=== PATIENT | male | born 1940 | race Caucasian/White ===

== ENCOUNTER 2017-01-29 10:25 | Day surgery (SDC) | payer OTHER ==
[2017-01-28 11:13] LABS: HEMATOCRIT 37.3 % (40.0-51.0); HEMOGLOBIN 13.2 g/dL (13.6-17.8)
[2017-01-28 11:33] LABS: BUN (BLOOD UREA NITROGEN) 7 MG/DL (6-23); CHLORIDE, SERUM 100 MMOL/L (96-112); CO2 (CARBON DIOXIDE) 26 MMOL/L (24-34); CREATININE 0.89 MG/DL (0.70-1.30); GFR AFRICAN AMERICAN 96 ML/MIN (>=60); GFR NON AFRICAN AMERICAN 83 ML/MIN (>=60); GLUCOSE, SERUM 148 MG/DL (60-99); POTASSIUM, SERUM 4.3 MMOL/L (3.5-5.3); SODIUM, SERUM 136 MMOL/L (135-148)
--- NOTE | ~2017-01-29 | OP ---
Record Of Operation [facility] [address] [place]. [address] NAME: DURGA PRADO : 40 STATUS : [facility]#: [id number] AGE: 76 ADM/REG DATE : 01/29/17 MR#: [id number] REPORT SERV DATE: 02/01/17 DICTATED BY: SHERRI CARTAGENA DATE: 02/01/17 REPORT STATUS : Draft TRANSCRIBED BY: MODL DATE: 02/01/17 DATE OF PROCEDURE: 01/29/2017 SERVICE: Otolaryngology. 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 ANESTHESIA: General endotracheal anesthesia. ESTIMATED BLOOD LOSS: 5 mL. COMPLICATIONS: None. SPECIMEN: 1. Initial wedge excision of lower lip. 2. Re-excision of medial margin. STATEMENT OF MEDICAL NECESSITY: This 76-year-old male who had in-office biopsy of a nonhealing lower lip lesion that demonstrated squamous cell carcinoma. The above surgery was recommended for appropriate margin control and reconstruction. STATEMENT OF OPERATION: The patient was brought to the operating room in supine position and transferred to the operating room table. After all pressure points were padded and general endotracheal anesthesia was established, the area and lip was infiltrated with 1% lidocaine with epinephrine. A cranial nerve V:III block was also performed intraorally in the gingivobuccal mucosa. The patient was then prepped and draped in the usual fashion. Using a surgical marking pen, a wedge incision with approximately 5 mm visual margins was performed with a full-thickness wedge removed. This was marked with a stitch on the medial edge of the excision and was sent for frozen analysis. There was a small microscopic focus of disease still present in the medial margin, another 5 mm was taken and sent for frozen. The wound was then closed in a complex fashion in three layers closing the muscular portion first followed by the mucosal margin. The mary border and wet line were both lined up carefully and the skin was closed with 5-0 fast absorbing gut sutures. This concluded the case. The patient was turned back over to Anesthesia where he awoke, was transferred to the PACU in stable condition. PS/MODL Sherri Record Of Operation [facility] [address] [place] [address] NAME: DURGA PRADO : 40 STATUS : [facility] PAT#: [id number] AGE: 76 ADM/REG DATE : 01/29/17 MR#: [id number] REPORT SERV DATE: 02/01/17 DICTATED BY: SHERRI CARTAGENA DATE: 02/01/17 REPORT STATUS : Draft TRANSCRIBED BY: MODL DATE: 02/01/17 MD Alpesh / [id number] CC: MD JOSE Wang J. MACK
[~2017-01-29 10:25] MED LIST: ASAB PO; GLUCOPHXR7 PO; LANTUS SC; LEVOTHYROXIN50 MCG PO; NORV10 PO; ZESTRIL40 MG PO
== END 2017-01-29 17:07 | disposition home or self-care (01) ==
LOC: SDC 10:25
PROVIDERS: Otolaryngology
PROC: 0CB1XZZ Excision of Lower Lip, External Approach (ICD-10-PCS; 2017-01-29)
PROC: 0CQ1XZZ Repair Lower Lip, External Approach (ICD-10-PCS; principal; 2017-01-29 11:45)
DX: C00.1 Malignant neoplasm of external lower lip (principal); I10 Essential (primary) hypertension; E11.9 Type 2 diabetes mellitus without complications; E03.9 Hypothyroidism, unspecified; M21.371 Foot drop, right foot; I49.9 Cardiac arrhythmia, unspecified; Z91.030 Bee allergy status; Z98.890 Other specified postprocedural states; Z79.899 Other long term (current) drug therapy; Z79.82 Long term (current) use of aspirin; Z79.84 Long term (current) use of oral hypoglycemic drugs; Z79.4 Long term (current) use of insulin
CPT/HCPCS: 80048; 82962; 85014; 85018; 88305; 88331; 88332; 93005; A9270-GY; J0690